=== PATIENT | male | born 1985 | race Caucasian/White ===

== ENCOUNTER 2024-02-26 09:09 | Outpatient (CLI) | payer OTHER ==
--- NOTE | 2024-02-27 14:07 | MRI Report ---
PROCEDURE: Shoulder RT WO INDICATIONS: R SHOULDER PAIN TECHNIQUE: Noncontrast oblique coronal T2 fast spin echo with fat saturation, oblique sagittal T1 spin echo and T2 fast spin echo with fat saturation, axial T1 spin echo and T2 fast spin echo with fat saturation t hrough the shoulder. COMPARISON: None. FINDINGS: Image quality: Excellent. Rotator cuff: Low-grade bursal surface partial-thickness tear involving distal supraspinatus at its i nsertion on humeral head extending to musculotendinous junction. Distal infraspinatus tendinosis is s een. Low-grade partial-thickness tear involving superior to mid fibers of distal subscapularis. No fu ll-thickness rotator cuff tendon rupture. No rotator cuff muscle atrophy on sagittal images. Bones and bursae: Moderate acromioclavicular joint and glenohumeral joint osteoarthritic changes are seen. No acute fracture or dislocation. Type I acromion without os acromiale. Small amount of subacro mial subdeltoid bursal fluid, no loose bodies. Capsule and soft tissues: There is fraying and T2 hyperintense signal involving superior anterior lab rum. Similar signal abnormality and fraying involving anterior inferior labrum is also seen. The long head of the biceps tendon demonstrates normal location and morphology. The rotator interval appears normal, without fibrosis. The coracohumeral ligament is normal in thickness. IMPRESSION: 1. Low-grade bursal surface partial-thickness tear involving distal supraspinatus extending to muscul otendinous junction. Distal infraspinatus tendinosis. Low-grade partial-thickness tear involving supe rior to mid fibers of distal subscapularis. No full-thickness rotator cuff tendon rupture. 2. Moderate acromioclavicular joint and glenohumeral joint osteoarthritis. No fracture or dislocation . Small amount of joint effusion and subacromial subdeltoid bursal fluid, no loose bodies. 3. Finding is suggestive of subtle superior anterior and anterior inferior right glenoid labral tear. Reviewed by: Juan Santa MD on 02/27/2024 2:06 PM PDT Approved by: Juan Santa MD on 02/27/2024 2:06 PM PDT Station ID: [id number]
== END 2024-02-26 09:10 | disposition home or self-care (01) ==
LOC: DI 09:09
PROVIDERS: ATTEND Student in an Organized Health Care Education/Training Program
DX: M75.111 Incomplete rotator cuff tear or rupture of right shoulder, not specified as traumatic (principal); M19.011 Primary osteoarthritis, right shoulder; M25.411 Effusion, right shoulder